=== PATIENT | female | born 1960 | race Hispanic/Latino ===

== ENCOUNTER 2020-02-03 18:58 | Inpatient (IN) | payer BC ==
[2020-02-03] MEDS ORDERED: Fentanyl 100 MCG/2 ML VIAL ONE ×3 (19:11→22:51)
--- NOTE | 2020-02-03 20:29 | RAD ---
RIGHT KNEE FOUR VIEWS: 02/03/20 HISTORY: Knee laceration. There is air seen within the soft tissues. This is seen along the more lateral side of the distal fem oral shaft; however, on the lateral view air projects into the region of the suprapatellar bursa and I cannot exclude that this indicates that there has been violation of the joint space. There does kamari ear to be a small joint space. There does appear to be a small joint effusion present. IMPRESSION: Soft tissue laceration. I cannot exclude the possibility that this involves the joint space. POS: [facility]
--- NOTE | 2020-02-03 20:43 | CT ---
CT OF RIGHT KNEE PERFORMED WITHOUT CONTRAST ENHANCEMENT: 02/03/20 HISTORY: Patient cut knee with a chainsaw. There is soft tissue laceration along the lateral side of the knee. Air is seen within the joint spac e with a small joint effusion. Air is also seen dissecting into the region of the vastus lateralis an d intermedius muscle related to the laceration. Small bony avulsion type injuries are seen along the lateral edge of the patella directly adjacent to the laceration. Some of these could also potentially represent tiny foreign bodies. There does appear to be a small defect in the lateral edge of the pat mora. IMPRESSION: Air and fluid seen within the joint space consistent with joint space compromise related to the lacer ation. POS: [facility]
[2020-02-03] MEDS ORDERED: CEFAZOLIN 1 GM VIAL ONE (20:53)
[2020-02-03 21:02] LABS: #Basophils 0.1 thou/uL (0.0-0.2); #Eosinphils 0.4 thou/uL (0.0-0.7); #Lymphocytes 2.5 thou/uL (1.20-3.40); #Monocytes 0.4 thou/uL (0.11-0.59); #Neutrophils 3.6 thou/uL (1.40-6.50); %Basophils 1.1 % (0.0-1.0); %Eosinophils 5.4 % (0.0-10.0); %Lymphocytes 35.5 % (21.0-51.0); Hemoglobin 13.2 g/dL (12.0-16.0); Mean Corpuscular Hemoglobin 32.2 pg (27.0-31.0); Mean Corpuscular Volume 91.8 fL (78.0-98.0); Mean Platelet Volume 8.4 fL (7.4-10.4); Platelet Count 218 thou/uL (130-400); RBC Distribution Width 12.3 % (11.5-14.5)
[2020-02-03] MEDS ORDERED: Morphine 4 MG/ML VIAL ONE ×2 (21:20→22:30)
[2020-02-03 21:23] LABS: ALT (SGPT) 29 U/L (8-55); AST (SGOT) 23 U/L (5-34); Albumin 4.4 g/dL (3.4-4.8); Alkaline Phosphatase 87 U/L (40-110); Anion Gap 12 mmol/L (10-20); BUN (Urea Nitrogen) 15 mg/dL (9.8-20.1); Bilirubin, Total 0.4 mg/dL (0.2-1.2); Calc. Creatinine Clearance 0 mL/min (70-130); Calcium 9.3 mg/dL (7.8-10.44); Carbon Dioxide 24 mmol/L (23-31); Chloride 109 mmol/L (98-107); Estimated GFR-MDRD 61; Globulin 2.6 g/dL (2.4-3.5); Glucose 104 mg/dL (80-115); Potassium 3.5 mmol/L (3.5-5.1); Sodium 141 mmol/L (136-145)
--- NOTE | 2020-02-03 21:35 | CON ---
DATE OF CONSULTATION: 02/03/2020 This is Fany Ge PA-C dictating a report for John Norton MD. REQUESTING PHYSICIAN: Trauma Services. CONSULTING PHYSICIANS: John Norton MD REASON FOR CONSULTATION: Chainsaw to the right knee. HISTORY OF PRESENT ILLNESS: This is a 59-year-old female, who states that she was working in the yard earlier today cutting tree branches when she was leaning into the chainsaw while it was cutting a branch above her. When the branch cut, she continued downward with a chainsaw, which ended up striking her right knee. She was able to bear weight initially. She noted bleeding and pain, and came to the emergency department. We were consulted for evaluation of this right knee injury. Further evaluation in the emergency department including x-rays and a CT scan showed gas within the knee joint. Currently at bedside, the patient denies any other injuries. She states she is able to move her toes. No numbness or tingling. She is right-hand dominant. PAST MEDICAL HISTORY: The patient denies. PAST SURGICAL HISTORY: The patient denies. SOCIAL HISTORY: The patient denies any alcohol or tobacco use. She lives at home with family. FAMILY HISTORY: Reviewed and noncontributory. REVIEW OF SYSTEMS: Ten-point review of systems conducted and is otherwise negative except for stated above. PHYSICAL EXAMINATION: GENERAL: The patient is awake and alert. She is in no apparent distress. She is currently in the emergency department with family at bedside. She answers all questions appropriately. HEENT: Head is normocephalic and atraumatic. NECK: Supple. Trachea midline. LUNGS: Breathing is nonlabored. EXTREMITIES: Evaluation of her extremities shows her right lower extremity to have a laceration measuring approximately 10 to 12 cm in length. The edges are jagged. This is located in the space just lateral and inferior to the patella. It does not appear to strike through the patellar tendon. She is able to do a straight leg raise. She is able to move her toes and her ankle. Distal neurovascular status is intact. Capillary refill is 2 seconds. There is scant bleeding coming from the laceration itself. No visible joint fluid at this time. No other injuries are noted. RADIOGRAPHIC IMAGING: I have reviewed the CT and x-rays in the emergency department. The CT does show evidence of gas formation present within the knee joint. There is no evidence for acute fracture. IMPRESSION: Right knee laceration from chainsaw injury with joint space compromise. PLAN: At this time, we will take the patient to the operating room for irrigation and debridement of her right knee joint. We will irrigate her knee through this laceration and then close the wound. The risks, benefits, and alternatives were discussed at length with the patient today. She verbalized understanding and is amenable to the plan of care. The patient will be admitted to the Trauma Services. Postoperatively, she will stay with us overnight. She will go to [facility] surgical floor. She will work with Physical and Occupational Therapy and will likely be discharged home tomorrow. Job ID: [id number]
[2020-02-03] MEDS ORDERED: Morphine 4 MG/ML VIAL SLOW IVP PRN (22:20)
[2020-02-03] MEDS ORDERED: hydrALAZINE 20 MG/ML VIAL SLOW IVP PRN (22:20)
[2020-02-03] MEDS ORDERED: Dextrose 5% in Water 1,000 ML IV PRN (22:20)
[2020-02-03] MEDS ORDERED: Dextrose 50% Abboject 50 ML SYRINGE SLOW IVP PRN (22:20)
[2020-02-03] MEDS ORDERED: traMADol HCl 50 MG TAB PO PRN (22:25)
[2020-02-03] MEDS ORDERED: Neomycin-Polymyxin 1 ML AMP ONE (22:26)
[2020-02-03] MEDS ORDERED: Sodium Chloride 0.9% 1,000 ML IV SCH (22:30)
[2020-02-03] MEDS ORDERED: Acetaminophen 500 MG TAB PO SCH (22:45)
[2020-02-03] MEDS ORDERED: Ibuprofen 200 MG TAB PO SCH (22:45)
--- NOTE | 2020-02-03 22:57 | RAD ---
XR Chest 1 View Portable HISTORY: Preop COMPARISON: None. FINDINGS: Heart size and mediastinum are within normal limits. The lungs are clear of infiltrates. Th ere is some minimal subsegmental atelectasis in the right base. No significant bony findings. IMPRESSION: Minimal subsegmental atelectasis right lung base..
[2020-02-03] MEDS ORDERED: Dexamethasone 20 MG/5 ML VIAL ONE (23:01)
[2020-02-03] MEDS ORDERED: Ondansetron PF 4 MG/2 ML Vial ONE (23:01)
[2020-02-03] MEDS ORDERED: PROPOFOL 200 MG/20 ML VIAL ONE (23:01)
[2020-02-03] MEDS ORDERED: Succinylcholine Chloride 20 MG/ML 10 ml SYRINGE FS ONE (23:01)
[2020-02-03] MEDS ORDERED: PHENYLEPHRINE-NS 100 MCG/ML 10 ML SYRINGE ONE (23:01)
[2020-02-03] MEDS ORDERED: Promethazine HCl 25 MG/ML VIAL SLOW IVP PRN (23:57)
[2020-02-03] MEDS ORDERED: Morphine Sulfate 2 MG/ML SYRINGE SLOW IVP PRN (23:57)
[2020-02-03] MEDS ORDERED: Ketorolac Tromethamine 30 MG/ML VIAL IVP PRN (23:57)
[2020-02-03] MEDS ORDERED: Meperidine HCl/PF 25 MG/ML VIAL SLOW IVP PRN (23:57)
[2020-02-03] MEDS ORDERED: Ondansetron HCl/PF 4 MG/2 ML Vial IVP PRN (23:57)
[2020-02-03] MEDS ORDERED: Promethazine HCl 25 MG/ML VIAL IM PRN (23:57)
[2020-02-03] MEDS ORDERED: HYDROmorphone 2 MG/ML VIAL SLOW IVP PRN (23:57)
[2020-02-04 01:00] VITALS: BMI 22.8
[2020-02-04] MEDS: traMADol HCl 50 MG TAB PO PRN ×3 (02:00→14:35)
[2020-02-04] MEDS: Ondansetron PF 4 MG/2 ML Vial IVP PRN ×2 (02:00→14:27)
--- NOTE | 2020-02-04 03:27 | HP ---
TRAUMA SURGEON: Dr. Esparza. CONSULTING PHYSICIAN: Dr. Norton. HISTORY OF PRESENT ILLNESS: The patient is a 59-year-old female, who presented to the emergency department by POV after she had a laceration to her right knee from a chainsaw. The patient reports that she was cutting a limb and when the limb fell, it pushed the chainsaw downwards and it hit her right knee. Bleeding was easily controlled. The patient did not fall down or sit down. She did not strike her head or lose consciousness. She denies anticoagulation use. She denies numbness and tingling in her lower extremity. REVIEW OF SYSTEMS: All additional 10-point review of systems negative except as indicated above. PAST MEDICAL HISTORY: Migraines and hypothyroidism. PAST SURGICAL HISTORY: Tubal ligation and right breast biopsy. SOCIAL HISTORY: The patient lives at home with her daughter. She denies tobacco, drug, or alcohol use. 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 MEDICATIONS: Levothyroxine and Excedrin p.r.n. ALLERGIES: NO KNOWN DRUG ALLERGIES AND HONEY. PHYSICAL EXAMINATION: VITAL SIGNS: Temperature 98.1, pulse 62, respirations 18, oxygen saturation 98 % on room air, and blood pressure 192/91. PRIMARY SURVEY: Airway intact. Adequate breath sounds bilaterally. 2+ pulses in the bilateral radials, femorals, and DPs. GCS 15. Gross motor and sensation intact. She has about 6 to 8 cm avulsion laceration to the lateral aspect of the right knee with bleeding controlled. SECONDARY SURVEY: HEAD: Normocephalic and atraumatic. No gross palpable skull deformities. EYES: Pupils 3-2, equal, round, reactive bilaterally. ENT: No hemotympanum. No epistaxis. No septal hematoma. Midface stable to manipulation. No blood in the oropharynx. Dentition is intact. No anterior neck injury/crepitus/tenderness. C-SPINE: No step-offs or deformities, nontender. C-collar not in place. CHEST: Nontender. No crepitus. No abrasions or ecchymosis. Equal chest movement. ABDOMEN: Soft, nontender, nondistended. PELVIS: Stable to palpation, nontender. No abrasions or ecchymosis. RECTAL: Deferred. GENITOURINARY: Deferred. EXTREMITIES: She has about 6 to 8 cm avulsion laceration to the lateral aspect of the right knee with bleeding control. No other abrasions or ecchymosis noted. 2+ pulses in the bilateral radials, femorals, and DPs bilaterally. BACK/SPINE: No step-offs or deformity or tenderness to palpation of the thoracic or lumbar spine. No abrasions or ecchymosis noted. NEUROLOGIC: 5/5 strength in the bilateral operations administrator, plantar flexion, dorsiflexion, gross normal sensation x4 extremities. LABORATORY FINDINGS: White count 7.0, hemoglobin 13.2, hematocrit 37.7, platelets 218. Sodium 141, potassium 3.5, chloride 105, bicarb 24, BUN 15, creatinine 0.94, glucose 104. DIAGNOSTIC FINDINGS: X-ray of the right knee demonstrates soft tissue laceration. I cannot exclude the possibility that this involves the joint space. CT scan of the right lower extremity demonstrates air and fluid seen within the joint space consistent with joint space compromise related to laceration. Chest x-ray demonstrates minimal subsegmental atelectasis of the right lung base. ASSESSMENT: 1. Right lateral knee avulsion laceration, about 6 to 8 cm, status post repair. 2. History of migraines and hypothyroidism. 3. Acute traumatic pain secondary to knee injury. 4. Hypertension, likely due to uncontrolled pain. PLAN: The patient will be n.p.o. with normal saline at 100 an hour. She will go to the OR today with Dr. Norton for a washout of the wound and further exploration for possible joint involvement. She will receive IV antibiotics. She has already received Ancef and tetanus shot in the emergency department. Postoperatively, she will receive p.o. pain medications. She will start to work with Physical and Occupational Therapy tomorrow morning and if she is able to get around safely, she will be discharged after her IV antibiotics are completed. We will follow up with Orthopedic Surgery tomorrow for any additional recommendations postoperatively. This patient was discussed with Dr. Esparza before this dictation. Job ID: [id number] [facility]
[2020-02-04] MEDS: CEFAZOLIN 2 GM in Premix Bag 1 BAG IVPB SCH ×3 (05:10→21:32)
[2020-02-04] MEDS: Acetaminophen 500 MG TAB PO SCH ×3 (05:13→17:37)
[2020-02-04] MEDS: Ibuprofen 200 MG TAB PO SCH ×3 (05:13→21:32)
[2020-02-04] MEDS: Levothyroxine Sodium 75 MCG TAB PO SCH (05:13)
[2020-02-04 05:38] LABS: #Lymphocytes 0.9 thou/uL (1.20-3.40); #Monocytes 0.2 thou/uL (0.11-0.59); #Neutrophils 9.4 thou/uL (1.40-6.50); %Basophils 0.1 % (0.0-1.0); %Eosinophils 0.1 % (0.0-10.0); %Lymphocytes 8.7 % (21.0-51.0); %Neutrophils 89.2 % (42.0-75.0); Hemoglobin 13.1 g/dL (12.0-16.0); Mean Corpuscular HGB CONC 34.5 g/dL (32.0-36.0); Mean Corpuscular Hemoglobin 31.6 pg (27.0-31.0); Mean Corpuscular Volume 91.8 fL (78.0-98.0); Mean Platelet Volume 7.8 fL (7.4-10.4); Platelet Count 195 thou/uL (130-400); RBC Distribution Width 12.3 % (11.5-14.5); Red Blood Cell (RBC) Count 4.14 mill/uL (4.20-5.40); White Blood Cell (WBC) Count 10.5 thou/uL (4.8-10.8)
[2020-02-04 06:01] LABS: Anion Gap 10 mmol/L (10-20); BUN (Urea Nitrogen) 12 mg/dL (9.8-20.1); Calc. Creatinine Clearance 69 mL/min (70-130); Calcium 8.7 mg/dL (7.8-10.44); Carbon Dioxide 24 mmol/L (23-31); Chloride 107 mmol/L (98-107); Estimated GFR-MDRD 66; Glucose 175 mg/dL (80-115); Magnesium 1.9 mg/dL (1.6-2.6); Potassium 3.8 mmol/L (3.5-5.1); Sodium 137 mmol/L (136-145)
[2020-02-04 06:05] LABS: Phosphorus 1.6 mg/dL (2.3-4.7)
[2020-02-04] MEDS ORDERED: Potassium Phosphate 15 MMOL in Sodium Chloride 0.9% 250 ML 250 ML IVPB SCH (06:45)
[2020-02-04] MEDS: Senokot S 8.6-50 MG TAB PO SCH ×2 (08:00→21:32)
[2020-02-04] MEDS: Famotidine/PF 20 mg/2ml Vial SLOW IVP SCH ×2 (08:00→21:32)
[2020-02-04] MEDS: Polyethylene Glycol 3350 17 GM Packet PO SCH (08:01)
--- NOTE | 2020-02-04 16:19 | PRG ---
DATE OF SERVICE: 02/04/2020 SUBJECTIVE: The patient remains on the surgical floor, status post incision and drainage of right knee joint. The patient is awake, alert, in no distress. Reports that her pain is well controlled at this time. The patient is tolerating a regular diet and voices no complaints. OBJECTIVE: VITAL SIGNS: Temperature 98.2, pulse 63, respirations 16, SpO2 of 99% on room air, blood pressure 116/77. GENERAL: Well-appearing, middle-aged female, awake, alert, in no distress. RESPIRATORY: Equal chest rise and fall. Bilateral breath sounds clear. EXTREMITIES: Moves all extremities. Knee immobilizer in place to right lower extremity. LABORATORY DATA: WBC 10.5, RBC 4.14, hemoglobin 13.1, hematocrit 38.0, platelets 195. Sodium 137, potassium 3.8, chloride 107, BUN 12, creatinine 0.87, estimated GFR 66, glucose 175, calcium 8.7, phosphorus 1.6, magnesium 1.9. DIAGNOSTIC DATA: There are no new diagnostics to review today. ASSESSMENT: 1. Right lateral ankle avulsion and laceration, status post irrigation, debridement, repair. 2. Acute traumatic pain secondary to injury. 3. History of migraines, hypothyroidism. PLAN: Regular diet as tolerated. We will stop the patient's IV fluids as she is tolerating a regular diet and drinking. Continue pain regimen. We will have Physical and Occupational Therapy work with the patient. Continue IV antibiotics. Most likely, the patient to be discharged home tomorrow if her pain is well controlled. The patient was examined by Dr. Pinzon during morning rounds. Job ID: [id number]
--- NOTE | 2020-02-05 00:31 | PRG ---
DATE OF SERVICE: 02/04/2020 SUBJECTIVE: The patient was seen this evening. She was sitting up in bed with no signs of acute distress. She reported pain is well controlled and she is tolerating her diet. She was able to work with Physical Therapy. OBJECTIVE: VITAL SIGNS: Temperature 97.7, pulse 66, respirations 16, oxygen saturation 97% on room air, blood pressure 128/70. GENERAL: Well-appearing, middle-aged female, sitting up in bed with no signs of acute distress. PULMONARY: Equal chest rise and fall. Clear breath sounds bilaterally. No signs of acute respiratory distress. ASSESSMENT: 1. Status post chainsaw accident to right lower extremity. 2. Avulsion laceration to right knee, status post repair. 3. History of migraines and hypothyroidism. PLAN: Continue current diet and pain regimen. Continue Physical and Occupational Therapy. Continue IV antibiotics per Orthopedic Surgery recommendation. The patient will likely be discharged home in the morning. We will repeat blood work as well. Job ID: [id number]
[2020-02-05] MEDS: Acetaminophen 500 MG TAB PO SCH ×3 (01:46→12:09)
[2020-02-05] MEDS: Levothyroxine Sodium 75 MCG TAB PO SCH (05:30)
[2020-02-05] MEDS: Ibuprofen 200 MG TAB PO SCH (05:30)
[2020-02-05 05:54] LABS: Anion Gap 10 mmol/L (10-20); BUN (Urea Nitrogen) 15 mg/dL (9.8-20.1); Calc. Creatinine Clearance 65 mL/min (70-130); Calcium 8.6 mg/dL (7.8-10.44); Carbon Dioxide 25 mmol/L (23-31); Chloride 106 mmol/L (98-107); Estimated GFR-MDRD 61; Glucose 113 mg/dL (80-115); Magnesium 2.2 mg/dL (1.6-2.6); Phosphorus 3.6 mg/dL (2.3-4.7); Potassium 3.8 mmol/L (3.5-5.1); Sodium 137 mmol/L (136-145)
[2020-02-05] MEDS: Polyethylene Glycol 3350 17 GM Packet PO SCH (09:38)
[2020-02-05] MEDS: Senokot S 8.6-50 MG TAB PO SCH (09:38)
[2020-02-05] MEDS: Famotidine/PF 20 mg/2ml Vial SLOW IVP SCH (09:39)
[2020-02-05 11:28] VITALS: BP 158/74; TEMP 97.8
[2020-02-05] MEDS: traMADol HCl 50 MG TAB PO PRN (12:10)
--- NOTE | 2020-02-05 14:08 | DIS ---
DATE OF ADMISSION: 02/04/2020 DATE OF DISCHARGE: 02/05/2020 This is Queta Reyes NP dictating a report for Alexsander Esparza DO. CONSULTS: Dr. Norton, Orthopedic Surgery. PROCEDURES: On 02/03/2020, irrigation and debridement of right knee laceration and closure. PRIMARY DIAGNOSIS: Right knee laceration from chainsaw injury with joint space compromise. SECONDARY DIAGNOSES: History of migraines and hypothyroidism. DISCHARGE MEDICATIONS: 1. Tylenol No. 3 q.6 hours p.r.n. pain #[address] Romero. 2. Augmentin, also written by Dr. Romero. 3. Ibuprofen 400 mg q.8 hours p.r.n. pain. 4. Acetaminophen 325 mg q.6 hours pain. 5. Levothyroxine 75 mcg p.o. daily. 6. MiraLAX and Senokot as needed for constipation. HISTORY OF PRESENT ILLNESS AND HOSPITAL COURSE: This is a 59-year-old female, who presented to the emergency room by private vehicle after she had a laceration to her right knee from a chainsaw. The patient was cutting a tree limb when the limb fell and pushed the chainsaw toward her and hit her right knee. Bleeding was easily controlled. The patient denied falling or hitting her head or losing consciousness. The patient was neurovascularly intact in that extremity. The patient's pain was controlled pre and postop. The patient was given several doses of IV antibiotics. The patient was able to ambulate without any difficulty. The patient was examined by Dr. Esparza on the day of discharge. The patient's vital signs were stable and her exam was unremarkable including cardiopulmonary and GI exam. The patient was deemed stable for discharge home. DISPOSITION: Stable. DISCHARGE INSTRUCTIONS: Home. DIET: Regular diet as tolerated. ACTIVITY: Weightbearing as tolerated. FOLLOWUP: 1. Follow up with Dr. Norton in 10 days. 2. Follow up with primary care physician regarding mildly elevated blood pressure. Job ID: [id number]
--- NOTE | 2020-02-07 16:33 | OP ---
DATE OF PROCEDURE: 02/04/2020 PREOPERATIVE DIAGNOSIS: Right knee traumatic arthrotomy with chainsaw (approximately 10 cm). POSTOPERATIVE DIAGNOSIS: Right knee traumatic arthrotomy with chainsaw (approximately 10 cm). PROCEDURES PERFORMED: 1. Irrigation and debridement of the right knee and traumatic arthrotomy. 2. Complex closure of right knee laceration (10 cm). ANESTHESIA: General. FOREST FIRE CONTROL OFFICER: None. TOURNIQUET TIME: Zero. ESTIMATED BLOOD LOSS: 20 mL. COMPLICATIONS: None. DRAINS: None. SPECIMEN: None. OUTCOME: Satisfactory. INDICATIONS FOR PROCEDURE: The patient is a 59-year-old female who was trimming limbs with a chainsaw when the chainsaw broke loose from the limb swinging down and catching herself in the right anterior medial knee. She sustained a laceration and with plain x-ray evaluation was found to have air within the joint consistent with a traumatic arthrotomy, as such Orthopedic consultation requested and the patient now taken to the operating room for formal irrigation and debridement. Informed consent has been obtained, I believe all questions have been answered. DESCRIPTION OF PROCEDURE: The patient was brought to the operating room and a time-out performed followed by induction of general anesthesia. Next, a sterile prep and drape was performed of the right lower extremity. Next, the knee laceration was inspected. She was found to have a laceration complex through the skin, also catching part of the medial retinaculum and just catching the medial border of the patella with a traumatic arthrotomy at this level. The skin edges that were somewhat ragged were sharply debrided using a scalpel, debriding this and some subcutaneous tissue. There was found to be some very minor amounts of foreign material within the knee, these were removed using forceps. Next, the traumatic arthrotomy was just slightly increased in size extending distally along the medial retinaculum to allow for a thorough inspection of the suprapatellar region of the knee. There was found to be just a minimal patella involved with this traumatic laceration with a chain saw, but no foreign debris was found in the knee joint itself. Next, the knee was irrigated with 5 L of normal saline using Pulsavac through this lateral arthrotomy with lateral wound also irrigated. At the completion of this debridement, the lateral retinaculum and joint capsule were closed in a single layer with 0 Vicryl. This was followed by 2-0 Vicryl subcutaneously and nylon for the skin. Xeroform gauze, Webril, and Darren wrap dressing was applied to the knee and the knee was placed in a knee immobilizer as well. The patient was then transferred to recovery room in stable condition. There were no complications. She tolerated the procedure well. Job ID: [id number]
--- NOTE | 2020-02-08 08:34 | PQF ---
TORIBIO COX ANTHONY, MD [id number] [facility] A- [facility] [id number] CLINICAL DOCUMENTATION CLARIFICATION FORM: POST DISCHARGE Addendum to original discharge summary date: ____ Late entry note date: __ DATE: 02/08/2020 ATTN:BRITTNEY GONZALEZ MD Please exercise your independent, professional judgment in responding to the clarification form. Clinical indicators are provided on the bottom of this form for your review Please check appropriate box(s): [ ] Excisional Debridement: [ ] Excised [ ] Cut away [ ] Other: ___ Depth / layer: (deepest layer of debridement): [ ] Skin[ ] SubQ Tissue [ ] Fascia [ ] Muscle [ ] Tendon [ ] Bone Appearance of wound: (e.g., down to fresh bleeding tissue, etc.) Margins: (please specify): / x x Instruments used: [ ] Scissors [ ] Scalpel [ ] Curette [ ] Soft tissue clipper [ ] Other: [ ] Non-excisional Debridement: (Removal by flushing, brushing, chemical, or washing) Depth / layer: (deepest layer of debridement): [ ] Skin[ ] Subcutaneous [ ] Fascia [ ] Muscle [ ] Tendon [ ] Bone [ ] Other procedure diagnosis [ ] Unable to determine For continuity of documentation, please document condition throughout progress notes and discharge summary. Thank You. CLINICAL INDICATORS - SIGNS / SYMPTOMS / LABS - The skin edges that were somewhat ragged sharply debrided using a scalpel, debriding this and some subcutaneous tissue- OP report, 02/03, BRITTNEY GONZALEZ MD - There was found to be some very minor amounts of foreign material within the knee, there were removed using forceps- OP report, 02/03, BRITTNEY GONZALEZ MD - the traumatic arthrotomy was just slightly increased in size extending distally along the medical retinaculum to allow for a through inspection of the suprapatellar region of the knee- OP report, 02/03, BRITTNEY GONZALEZ MD - Irrigation and debridement of the right knee and traumatic arthrotomy- OP report, 02/03, BRITTNEY GONZALEZ MD RISK FACTORS - Right knee traumatic arthrotomy with chainsaw- OP report, 02/03, BRITTNEY GONZALEZ MD - Chain saw injury-DS, 02/04, Amy Birch TREATMENTS: - Complex closure of right knee laceration- OP report, 02/03, BRITTNEY GONZALEZ MD - Knee immobilizer-OP report, 02/03, BRITTNEY GONZALEZ MD (This form is maintained as a part of the permanent medical record) 2014 [employer] All Rights Reserved [email or web address]
== END 2020-02-05 12:51 | disposition home or self-care (01) | DRG 581 ==
LOC: ERS 18:58 → SURG A 22:55 → SDC/OP 23:09 → SURG A 02-04 00:54
PROVIDERS: ADMIT Surgery; ATTEND Surgery
PROC: 0JDN0ZZ Extraction of Right Lower Leg Subcutaneous Tissue and Fascia, Open Approach (ICD-10-PCS; principal; 2020-02-04)
DX: S81.011A Laceration without foreign body, right knee, initial encounter (principal); G43.909 Migraine, unspecified, not intractable, without status migrainosus; S93.04XA Dislocation of right ankle joint, initial encounter; E03.9 Hypothyroidism, unspecified; W29.3XXA Contact with powered garden and outdoor hand tools and machinery, initial encounter
CPT/HCPCS: 36415; 71045; 80048; 80053; 83735; 84100; 85025; 96365; 96375; 96376; J0690; J1100; J2270; J2405; J2704; J3010; J7050; S0028